=== PATIENT | female | born 2000 | race Caucasian/White ===

== ENCOUNTER 2022-06-24 19:09 | Emergency (ER) | payer MEDICAID, SELFPAY ==
[2022-06-24 19:23] VITALS: BP 123/86; PULSE 96; RESP 16; TEMP 37.1; O2SAT 97
[2022-06-24 20:48] LABS: Basophils # 0.1 10^3/uL (0.0-0.1); Basophils % 0.9 %; Eosinophils # 0.8 10^3/uL (0.0-0.8); Eosinophils % 7.5 %; Hematocrit 48.1 % (37.0-47.0); Hemoglobin 15.4 g/dL (11.5-15.3); Lymphocytes # 2.1 10^3/uL (0.8-4.8); Lymphocytes % 20.1 %; Mean Corpuscular Hemoglobin 28.2 pg (28.0-34.0); Mean Corpuscular Volume 88.1 fl (81-99); Mean Platelet Volume 9.3 fL (7.4-10.4); Monocytes # 0.6 10^3/uL (0.2-0.9); Neutrophils # 6.95 10^3/uL (1.8-7.7); Neutrophils % 65.2 %; Nucleated Red Blood Cells % 0 %; Platelet Count 231 10^3/cmm (130-400); Red Blood Count 5.46 10^6/uL (4.1-5.3); Red Cell Distribution Width 12.9 % (12.1-15.1); White Blood Count 10.7 10^3/uL (4.0-10.0)
[2022-06-24 21:12] LABS: HCG, Serum Qual Negative (Negative)
[2022-06-24 21:16] LABS: Alanine Aminotransferase 28 U/L (0-33); Albumin Level 4.1 g/dL (3.5-5.2); Alkaline Phosphatase 63 U/L (35-105); Anion Gap 12.1 (5-19); Aspartate Amino Transferase 19 U/L (0-32); Blood Urea Nitrogen 15 mg/dL (6-20); Calcium 8.5 mg/dL (8.5-10.5); Carbon Dioxide 27 mmol/L (22-29); Chloride 106 mmol/L (98-107); Globulin 3.1 g/dL (1.3-4.6); Glomerular Filtration Rate 78.3 mL/min (90-130); Glucose 103 mg/dL (65-115); Lipase 21 U/L (13-60); Osmolality Calculated 293 mOsm/kg (285-295); Potassium 4.1 mmol/L (3.5-5.1); Sodium 141 mmol/L (136-145); Total Bilirubin 0.2 mg/dL (0.15-1.2); Total Protein 7.2 g/dL (6.6-8.7)
--- NOTE | 2022-06-24 21:49 | W.ED.ABDPA2 ---
HPI - Abdominal Pain General: Chief Complaint: Abdominal Pain Stated Complaint: right abdomen pain Time Seen by Provider: 06/24/22 21:31 Source: patient Mode of arrival: ambulatory Limitations: no limitations History of Present Illness: See nursing assessment. Patient with complaints of bilateral lower abdominal pain for the past 4 days. Patient states she had dysuria about 1 to 2 weeks ago but did not treated. She states she has no dysuria now. She denies any fever. She denies any lymphadenopathy. She states the pain is mostly in her groins bilaterally. She states she has occasional lower abdominal cramping. States her last menstrual period is about 4 to 6 weeks ago. She denies any previous abdominal surgeries. She is allergic to anything. Past medical history includes hypoglycemia, gallstones by ultrasound. She denies any menses now. Associated Symptoms: Reports GI cramping; Denies chills, fever(s), nausea and vomiting Related Data: Date of Last Menstrual Period: 05/10/22 Review of Systems Const: Denies: fever(s) or chills Eyes: Denies: change in vision ENMT: Denies: throat pain Card: Denies: chest pain or palpitations Resp: Denies: dyspnea or wheezing GI: Reports: abdominal pain and GI cramping; Denies: nausea or vomiting : Denies: flank pain Musc: Denies: neck pain or back pain Skin/Breast: Denies: rash or pruritus Neuro: Denies: headache(s) or numbness in extremities Psych: Denies: anxiety Igor/Lymph: Denies: enlarged lymph nodes [facility] ED Female Reproductive History: Date of last menstrual period: 05/10/22 Supplemental [facility] Information: Hypoglycemia, cholelithiasis, morbid obesity Physical Exam Const: COMMON NORMALS: no acute distress, patient oriented x3, no limitations and well nourished GENERAL APPEARANCE: cooperative HENMT: COMMON NORMALS: normocephalic and atraumatic HEAD & SCALP: normocephalic and atraumatic FACE & SINUS: normal facial exam Eye: COMMON NORMALS: EOMs intact bilaterally Neck/C-Spine: COMMON NORMALS: full ROM, no lymphadenopathy, supple and no meningeal signs GENERAL: Yes normal visual inspection Lymph: LYMPHATIC: no lymphadenopathy noted Chest: COMMONS NORMALS: normal inspection of the chest and normal palpation of entire chest wall CHEST: No Ecchymosis present and No rash Resp: COMMON NORMALS: normal respiratory effort, No retractions and clear to auscultation bilaterally EFFORT & INSPECTION: No respiratory distress AUSCULTATION: clear to auscultation bilaterally Cardio: COMMON NORMALS: regular rate, regular rhythm and Peripheral pulses 2+ throughout JUGULAR VENOUS DISTENTION: no JVD RATE: regular rate RHYTHM: regular rhythm PERIPHERAL PULSES: Peripheral pulses 2+ throughout GI: COMMON NORMALS: Normal to inspection, nondistended, normoactive bowel sounds present and non-tender OTHER: Morbid obesity. Abdomen is actually nontender. No masses palpated. : COMMON NORMALS: Yes no CVA tenderness BLADDER/KIDNEY EXAM: Yes no CVA tenderness OTHER: Patient states she has minimal pain in the groins bilaterally. No lymphadenopathy. No hernias palpated. Back/Pelvis: COMMON NORMALS: no CVA tenderness Extremity: COMMON NORMALS: normal to inspection, full ROM and capillary refill normal Neuro: COMMON NORMALS: patient oriented x3, CN's II-XII intact bilaterally, no focal motor deficits and no sensory deficits noted MENINGEAL SIGNS: Yes no meningeal signs Psych: COMMON NORMALS: mental status grossly normal and Normal thought process present THOUGHT PROCESS: Normal thought process present Skin: COMMON NORMALS: no rashes or lesions noted and no wounds GENERAL SKIN EXAM: no rashes or lesions noted Course Vital Signs: Vital signs: Vital Signs Temperature 98.8 F 06/24/22 19:23 Pulse Rate 80 06/24/22 22:09 Respiratory Rate 16 06/24/22 22:09 Blood Pressure 134/75 06/24/22 22:09 Pulse Oximetry 98 06/24/22 22:09 Oxygen Delivery Me thod 06/24/22 22:09 MDM - Abdominal Pain Medical Decision Making Abdominal pain versus groin pain. Patient in no distress. No palpable lower abdominal pain now. I do not believe patient requires emergent CT scan or pelvic ultrasound this time. I encouraged patient to follow-up with primary care doctor if symptoms persist for outpatient pelvic ultrasound. She does have a family history of polycystic ovarian syndrome. Lab Data Lab tests are essentially normal. 06/24/22 20:39 06/24/22 20:39 Labs/Radiology: Laboratory Results WBC 10.7 10^3/uL (4.0-10.0) H 06/24/22 20:39 RBC 5.46 10^6/uL (4.1-5.3) H 06/24/22 20:39 Hgb 15.4 g/dL (11.5-15.3) H 06/24/22 20:39 Hct 48.1 % (37.0-47.0) H 06/24/22 20:39 MCV 88.1 fl (81-99) 06/24/22 20:39 MCH 28.2 pg (28.0-34.0) 06/24/22 20:39 MCHC 32.0 g/dL (30.0-36.0) 06/24/22 20:39 RDW 12.9 % (12.1-15.1) 06/24/22 20:39 Plt Count 231 10^3/cmm (130-400) 06/24/22 20:39 MPV 9.3 fL (7.4-10.4) 06/24/22 20:39 Neut % (Auto) 65.2 % 06/24/22 20: Lymph % (Auto) 20.1 % 06/24/22 20:39 [place] % (Auto) 6.0 % 06/24/22 20:39 Eos % (Auto) 7.5 % 06/24/22 20:39 Baso % (Auto) 0.9 % 06/24/22 20:39 Neut # (Auto) 6.95 10^3/uL (1.8-7.7) 06/24/22 20:39 Lymph # (Auto) 2.1 10^3/uL (0.8-4.8) 06/24/22 20:39 [place] # (Auto) 0.6 10^3/uL (0.2-0.9) 06/24/22 20:39 Eos # (Auto) 0.8 10^3/uL (0.0-0.8) 06/24/22 20:39 Baso # (Auto) 0.1 10^3/uL (0.0-0.1) 06/24/22 20:39 Nucleated RBC % (auto) 0 % 06/24/22 20: Nucleated RBCs # 0.0 /100WBC 06/24/22 20:39 Sodium 141 mmol/L (136-145) 06/24/22 20:39 Potassium 4.1 mmol/L (3.5-5.1) 06/24/22 20:39 Chloride 106 mmol/L (98-107) 06/24/22 20:39 Carbon Dioxide 27 mmol/L (22-29) 06/24/22 20:39 Anion Gap 12.1 (5-19) 06/24/22 20:39 BUN 15 mg/dL (6-20) 06/24/22 20:39 Creatinine 0.9 mg/dL (0.5-0.9) 06/24/22 20:39 GFR Calculation 78.3 mL/min (90-130) L 06/24/22 20:39 Glucose 103 mg/dL (65-115) 06/24/22 20:39 Calculated Osmolality 293 mOsm/kg (285-295) 06/24/22 20:39 Calcium 8.5 mg/dL (8.5-10.5) 06/24/22 20:39 Total Bilirubin 0.2 mg/dL (0.15-1.2) 06/24/22 20:39 AST 19 U/L (0-32) 06/24/22 20:39 ALT 28 U/L (0-33) 06/24/22 20:39 Alkaline Phosphatase 63 U/L (35-105) 06/24/22 20:39 Total Protein 7.2 g/dL (6.6-8.7) 06/24/22 20:39 Albumin 4.1 g/dL (3.5-5.2) 06/24/22 20:39 Globulin 3.1 g/dL (1.3-4.6) 06/24/22 20:39 Lipase 21 U/L (13-60) 06/24/22 20:39 HCG, Qual Negative (Negative) 06/24/22 20:39 Urine Color Yellow (Yellow) 06/24/22 21:30 Urine Appearance Clear (CLEAR) 06/24/22 21:30 Urine pH 5 (5-7) 06/24/22 21:30 Ur Specific [place] 1.020 (1.005-1.030) 06/24/22 21:30 Urine Protein Neg (Negative) 06/24/22 21:30 Urine Glucose (UA) Norm (Normal) 06/24/22 21:30 Urine Ketones Negative (Negative) 06/24/22 21:30 Urine Blood Neg (Negative) 12/16/22 21:30 Urine Nitrate Negative (Negative) 06/24/22 21:30 Urine Bilirubin 1+ (Negative) H 06/24/22 21:30 Urine Urobilinogen Neg mg/dL (Negative) 06/24/22 21:30 Ur Leukocyte Esterase Negative (Negative) 06/24/22 21:30 Discharge Plan Discharge Patient Disposition: Home Clinical Impression: Abdominal pain Qualifiers: Abdominal location: lower abdomen, unspecified Qualified Code(s): R10.30 - Lower abdominal pain, unspecified Condition: Stable Prescriptions: New naproxen [Naprosyn] 500 mg tablet 500 mg PO BID PRN (Reason: pain) Qty: 10 2RF Rx Instructions: prn pain Discharge Orders: Discharge ED (Routine); Ordered 06/24/22 Ordered By: Ricco Carson Discharge Activity: Increase activity as tolerated Patient Instructions: Abdominal Pain (ED) Activity Restrictions/Additional Instructions: Follow-up with primary care doctor next week if symptoms persist. You may require ultrasound of your pelvis if pain persists. Coding Level of Care Code ED Customer Service Engineer for Jose Marting Fwd History Comprehensive Exam Comprehensive Medical Decision Making Moderate Complexity
[2022-06-24 21:51] LABS: Add Urine Microscopic? NO; Charge for UA Resulting for Rev
[2022-06-24 22:09] VITALS: BP 134/75; PULSE 80; RESP 16; O2SAT 98
[2022-06-24 22:11] LABS: Bilirubin Urine 1+ (Negative); Blood Urine Neg (Negative); Glucose Urine UA Norm (Normal); Ketones Urine Negative (Negative); Leukocyte Esterase Urine Negative (Negative); Nitrate Urine Negative (Negative); Protein Urine Neg (Negative); Urine Appearance Clear (CLEAR); Urine Color Yellow (Yellow); Urobilinogen Urine Neg (Negative); pH Urine 5 (5-7)
[2022-06-24 23:35] VITALS: BP 137/68; PULSE 79; RESP 16; O2SAT 98
== END 2022-06-24 23:33 | disposition home or self-care (01) ==
PROVIDERS: Emergency Medicine; Emergency Provider Family Medicine
DX: R10.30 Lower abdominal pain, unspecified (principal)
CPT/HCPCS: 36415; 80053; 81003; 83690; 84703; 85025; 99283

== ENCOUNTER 2022-08-12 01:13 | Emergency (ER) | payer MEDICAID, SELFPAY ==
[2022-08-12 01:18] VITALS: BP 141/91; PULSE 92; RESP 18; TEMP 36.6; O2SAT 97; BMI 53.2
--- NOTE | 2022-08-12 01:27 | USR_ITS ---
PROCEDURE INFORMATION: Exam: US Abdomen, Limited; Right Upper Quadrant Exam date and time: 08/12/2022 1:51 AM Age: 21 years old Clinical indication: Abdominal pain; Other: Ruq pain today 02/16; Patient HX: Patient was diagnosed with cholelithiasis in [place] 1-2 years ago, but she has been delaying surgery because she is unable to afford it. Ruq pain is intermittently quite intense, now 02/16. ; Additional info: Abd pain TECHNIQUE: Imaging protocol: Real time ultrasound of the abdomen with image documentation. Limited exam focused on the right upper quadrant. COMPARISON: No relevant prior studies available. FINDINGS: Liver: Normal. No masses. Gallbladder: There is a prominent hyperechoic focus seen intraluminally within the gallbladder exhibiting acoustic shadowing measuring 1.7 cm compatible with a prominent gallstone. There is mild gallbladder wall thickening measuring 3.4 mm. There is a positive sonographic Reynoso sign elicited. Biliary ducts: Normal. No stones. No dilation. Pancreas: Visualized pancreas is unremarkable. Right kidney: Normal. No mass. No hydronephrosis. US/US gall bladder [id number] IMPRESSION: Prominent gallstone with asymmetric gallbladder wall thickening measuring up to 3.4 mm and positive sonographic Reynoso sign, findings compatible with gallstone cholecystitis.
--- NOTE | 2022-08-12 01:31 | ED_ITS ---
HPI - Abdominal Pain General: Chief Complaint: Abdominal Pain Stated Complaint: ABD Pain Possible Gall Stones Time Seen by Provider: 08/12/22 01:16 Source: patient Mode of arrival: ambulatory Limitations: no limitations History of Present Illness: 21-year-old female states she had a history of gallstones in the past states she been having pain over the last month and has been worsening. States it is worse with eating states tonight pain was severe in nature rates an 8 out of 10 she had some nausea denies fever denies vomiting pain is in the right upper quadrant states it seemed to radiate to her right upper back as well. Associated Symptoms: Denies chills, dysuria and fever(s) Related Data: Date of Last Menstrual Period: 05/10/22 Review of Systems Const: Denies: fever(s), chills, body aches or change in appetite Eyes: Denies: blurry vision or eye discomfort ENMT: Denies: throat pain or dental pain Card: Denies: chest pain Resp: Denies: dyspnea GI: Reports: abdominal pain : Denies: dysuria Musc: Denies: neck pain or back pain Skin/Breast: Denies: rash Neuro: Denies: headache(s) Psych: Denies: depression Igor/Lymph: Denies: easy bruising All/Imm: Denies: urticaria PFSH ED PFSH: Medical History Gallstone Social History (Updated 08/12/22 @ 01:32 by Thu Mora MD) Substance/Drug Use: never Female Reproductive History: Date of last menstrual period: 05/10/22 Physical Exam Const: COMMON NORMALS: no acute distress, patient oriented x3 and healthy appearing HENMT: COMMON NORMALS: normocephalic and atraumatic HEAD & SCALP: normocephalic and atraumatic Eye: COMMON NORMALS: Equal, round and reactive pupils present and EOMs intact bilaterally PUPIL: Yes Equal, round and reactive pupils present Neck/C-Spine: COMMON NORMALS: full ROM and supple Chest: COMMONS NORMALS: normal inspection of the chest and normal palpation of entire chest wall Resp: COMMON NORMALS: normal respiratory effort, No retractions, No use of accessory muscles and clear to auscultation bilaterally AUSCULTATION: clear to auscultation bilaterally Cardio: COMMON NORMALS: regular rate, regular rhythm and No murmurs present (Cardio) RATE: regular rate RHYTHM: regular rhythm GI: COMMON NORMALS: Normal to inspection, nondistended, normoactive bowel sounds present, Soft to palpation and no masses PALPATION: Yes Soft to palpation and Yes Tenderness to palpation present (GI) Details: RUQ Extremity: COMMON NORMALS: normal to inspection and full ROM Neuro: COMMON NORMALS: patient oriented x3, moves all extremities and no focal motor deficits Psych: COMMON NORMALS: mental status grossly normal, Normal thought process present and cooperative THOUGHT PROCESS: Normal thought process present Skin: COMMON NORMALS: no rashes or lesions noted and no wounds GENERAL SKIN EXAM: no rashes or lesions noted Course Vital Signs: Vital signs: Vital Signs Temperature 97.9 F 08/12/22 01:18 Pulse Rate 92 08/12/22 01:18 Respiratory Rate 16 08/12/22 01:38 Blood Pressure 141/91 08/12/22 01:18 Pulse Oximetry 97 08/12/22 01:18 MDM - Abdominal Pain Medical Decision Making Patient presents here with abdominal pain she does have elevated white count right upper quadrant tenderness and ultrasound shows cholecystitis with gallstones I did speak to surgeon here Dr. Cummings who felt patient would be better served at a larger facility as he did not feel comfortable with surgery here due to her size I did speak to Dr. Mcpherson at [facility] will transfer there for higher level care for bariatric capabilities Lab Data 08/12/22 01:38 08/12/22 01:38 Labs/Radiology: Radiology Impressions Gallbladder Ultrasound 08/12/22 01:27 IMPRESSION: Prominent gallstone with asymmetric gallbladder wall thickening measuring up to 3.4 mm and positive sonographic Reynoso sign, findings compatible with gallstone cholecystitis. Laboratory Results WBC 16.3 10^3/uL (4.0-10.0) H 08/12/22 01:38 RBC 5.90 10^6/uL (4.1-5.3) H 08/12/22 01:38 Hgb 16.6 g/dL (11.5-15.3) H 08/12/22 01:38 Hct 50.7 % (37.0-47.0) H 08/12/22 01:38 MCV 85.9 fl (81-99) 08/12/22 01:38 MCH 28.1 pg (28.0-34.0) 08/12/22 01:38 MCHC 32.7 g/dL (30.0-36.0) 08/12/22 01:38 RDW 13.3 % (12.1-15.1) 08/12/22 01:38 Plt Count 231 10^3/cmm (130-400) 08/12/22 01:38 MPV 9.4 fL (7.4-10.4) 08/12/22 01:38 Neut % (Auto) 48.2 % 08/12/22 01:38 Lymph % (Auto) 23.0 % 08/12/22 01:38 [place] % (Auto) 5.4 % 08/12/22 01:38 Eos % (Auto) 22.1 % 08/12/22 01:38 Baso % (Auto) 0.8 % 08/12/22 01:38 Neut # (Auto) 7.86 10^3/uL (1.8-7.7) H 08/12/22 01:38 Lymph # (Auto) 3.8 10^3/uL (0.8-4.8) 08/12/22 01:38 [place] # (Auto) 0.9 10^3/uL (0.2-0.9) 08/12/22 01:38 Eos # (Auto) 3.6 10^3/uL (0.0-0.8) H 08/12/22 01:38 Baso # (Auto) 0.1 10^3/uL (0.0-0.1) 08/12/22 01:38 Nucleated RBC % (auto) 0 % 08/12/22 01:38 Nucleated RBCs # 0.0 /100WBC 08/12/22 01:38 Sodium 140 mmol/L (136-145) 08/12/22 01:38 Potassium 4.3 mmol/L (3.5-5.1) 08/12/22 01:38 Chloride 105 mmol/L (98-107) 08/12/22 01:38 Carbon Dioxide 25 mmol/L (22-29) 08/12/22 01:38 Anion Gap 14.3 (5-19) 08/12/22 01:38 BUN 13 mg/dL (6-20) 08/12/22 01:38 Creatinine 0.8 mg/dL (0.5-0.9) 08/12/22 01:38 GFR Calculation 89.7 mL/min (90-130) L 08/12/22 01:38 Glucose 97 mg/dL (65-115) 08/12/22 01:38 Calculated Osmolality 290 mOsm/kg (285-295) 08/12/22 01:38 Calcium 9.1 mg/dL (8.5-10.5) 08/12/22 01:38 Total Bilirubin 0.3 mg/dL (0.15-1.2) 08/12/22 01:38 AST 17 U/L (0-32) 08/12/22 01:38 ALT 23 U/L (0-33) 08/12/22 01:38 Alkaline Phosphatase 76 U/L (35-105) 08/12/22 01:38 Total Protein 7.2 g/dL (6.6-8.7) 08/12/22 01:38 Albumin 4.3 g/dL (3.5-5.2) 08/12/22 01:38 Globulin 2.9 g/dL (1.3-4.6) 08/12/22 01:38 Lipase 49 U/L (13-60) 08/12/22 01:38 HCG, Qual Negative (Negative) 08/12/22 01:38 Urine Color Yellow (Yellow) 08/12/22 01:42 Urine Appearance Sl hazy (CLEAR) A 08/12/22 01:42 Urine pH 6 (5-7) 08/12/22 01:42 Ur Specific [place] 1.020 (1.005-1.030) 08/12/22 01:42 Urine Protein Neg (Negative) 08/12/22 01:42 Urine Glucose (UA) Norm (Normal) 08/12/22 01:42 Urine Ketones Negative (Negative) 08/12/22 01:42 Urine Blood Neg (Negative) 08/12/22 01:42 Urine Nitrate Negative (Negative) 08/12/22 01:42 Urine Bilirubin Neg (Negative) 08/12/22 01:42 Urine Urobilinogen 1 mg/dL (Negative) H 08/12/22 01:42 Ur Leukocyte Esterase 2+ (Negative) H 08/12/22 01:42 Urine RBC 0-4 /hpf (0-2) H 08/12/22 01:42 Urine WBC 10-15 /hpf (0-5) H 08/12/22 01:42 Ur Squamous Epith Cells 15-25 /hpf (0-5) H 08/12/22 01:42 Amorphous Sediment Not Reportable 08/12/22 01:42 Urine Bacteria 2+ /hpf (NONE) H 08/12/22 01:42 Discharge Plan Discharge Patient Disposition: Xfer Short-Term Hosp Clinical Impression: Cholecystitis Coding Level of Care Code ED Clinical Asst for Nolan Fwd Exam Comprehensive
[2022-08-12 01:38] VITALS: RESP 16
[2022-08-12] MEDS: ondansetron 2 mg/ML SDV 2 mL 4 MG IVP (01:38)
[2022-08-12] MEDS: morphine 4 mg/mL SDV 1 mL IVP (01:38)
[2022-08-12] MEDS: sodium chloride 0.9% 1,000 ML 999 ML IV (01:39)
[2022-08-12 01:43] LABS: Basophils # 0.1 10^3/uL (0.0-0.1); Basophils % 0.8 %; Eosinophils # 3.6 10^3/uL (0.0-0.8); Eosinophils % 22.1 %; Hematocrit 50.7 % (37.0-47.0); Hemoglobin 16.6 g/dL (11.5-15.3); Lymphocytes # 3.8 10^3/uL (0.8-4.8); Mean Corpuscular HGB Conc 32.7 g/dL (30.0-36.0); Mean Corpuscular Hemoglobin 28.1 pg (28.0-34.0); Mean Corpuscular Volume 85.9 fl (81-99); Mean Platelet Volume 9.4 fL (7.4-10.4); Monocytes # 0.9 10^3/uL (0.2-0.9); Monocytes % 5.4 %; Neutrophils # 7.86 10^3/uL (1.8-7.7); Neutrophils % 48.2 %; Nucleated Red Blood Cells % 0 %; Platelet Count 231 10^3/cmm (130-400); Red Cell Distribution Width 13.3 % (12.1-15.1); White Blood Count 16.3 10^3/uL (4.0-10.0)
[2022-08-12 02:00] VITALS: BP 128/77; PULSE 79; RESP 18; O2SAT 97
[2022-08-12 02:05] LABS: Alanine Aminotransferase 23 U/L (0-33); Albumin Level 4.3 g/dL (3.5-5.2); Alkaline Phosphatase 76 U/L (35-105); Aspartate Amino Transferase 17 U/L (0-32); Blood Urea Nitrogen 13 mg/dL (6-20); Calcium 9.1 mg/dL (8.5-10.5); Carbon Dioxide 25 mmol/L (22-29); Chloride 105 mmol/L (98-107); Globulin 2.9 g/dL (1.3-4.6); Glomerular Filtration Rate 89.7 mL/min (90-130); Glucose 97 mg/dL (65-115); Lipase 49 U/L (13-60); Osmolality Calculated 290 mOsm/kg (285-295); Sodium 140 mmol/L (136-145); Total Bilirubin 0.3 mg/dL (0.15-1.2); Total Protein 7.2 g/dL (6.6-8.7)
[2022-08-12 02:19] LABS: Anion Gap 14.3 (5-19); Potassium 4.3 mmol/L (3.5-5.1)
[2022-08-12 02:20] LABS: HCG, Serum Qual Negative (Negative)
[2022-08-12 02:23] LABS: Urine Appearance SL Hazy (CLEAR); Urine Color Yellow (Yellow)
[2022-08-12 02:24] LABS: Add Urine Microscopic? YES; Bacteria Urine 2+ /hpf; Bilirubin Urine Neg (Negative); Blood Urine Neg (Negative); Glucose Urine UA Norm (Normal); Ketones Urine Negative (Negative); Leukocyte Esterase Urine 2+ (Negative); Nitrate Urine Negative (Negative); Protein Urine Neg (Negative); RBC Urine 0-4 /hpf (0-2); Squamous Epithelial Cell Urine 15-25 /hpf (0-5); Urobilinogen Urine 1 mg/dL (Negative); pH Urine 6 (5-7)
[2022-08-12 02:26] LABS: Add Urine Culture? No
[2022-08-12 03:00] VITALS: BP 118/75; BP 124/66; PULSE 73; PULSE 75; RESP 18; O2SAT 99
[2022-08-12] MEDS: piperacillin-tazobactam 3.375 GM in sodium chloride 0.9% (plus) 50 ML IV (03:23)
[2022-08-12 04:00] VITALS: BP 131/64; PULSE 88; RESP 18; O2SAT 97
[2022-08-12 05:00] VITALS: BP 106/66; RESP 18; O2SAT 100
--- NOTE | 2022-08-12 05:15 | PC.NURSE ---
Report called to KIM Orellana
[2022-08-12] MEDS: HYDROmorphone 1 mg/mL INJ 1 mL IVP (05:33)
== END 2022-08-12 09:09 | disposition short-term general hospital (02) ==
PROVIDERS: Emergency Provider Emergency Medicine
DX: K81.9 Cholecystitis, unspecified (principal)
CPT/HCPCS: 76705; 80053; 81001; 83690; 84703; 85025; 96365; 96375; 99285; J1170; J2270; J2405; J2543; J7030

== ENCOUNTER 2023-04-25 18:13 | Emergency (ER) | payer MEDICAID, SELFPAY ==
[2023-04-25 18:17] VITALS: BP 167/80; PULSE 86; RESP 17; TEMP 36.6; O2SAT 97; BMI 51.3
[2023-04-25 19:32] LABS: Basophils # 0.1 10^3/uL (0.0-0.1); Basophils % 0.8 %; Eosinophils # 0.5 10^3/uL (0.0-0.8); Eosinophils % 6.3 %; Hematocrit 48.6 % (36-47); Lymphocytes # 2.5 10^3/uL (0.8-4.8); Lymphocytes % 28.9 %; Mean Corpuscular HGB Conc 32.5 g/dL (30-55); Mean Corpuscular Volume 89.3 fl (85-98); Mean Platelet Volume 9.4 fL (7.4-10.4); Monocytes # 0.5 10^3/uL (0.2-0.9); Monocytes % 5.7 %; Neutrophils % 58.1 %; Nucleated Red Blood Cells % 0 %; Platelet Count 239 10^3/cmm (157-399); Red Blood Count 5.44 10^6/uL (3.85-5.65); Red Cell Distribution Width 12.9 % (12.1-15.1); White Blood Count 8.61 10^3/uL (3.29-11.43)
--- NOTE | 2023-04-25 19:40 | ED_ITS ---
HPI - Abdominal Pain General: Chief Complaint: Abdominal Pain Stated Complaint: abdomin pain Time Seen by Provider: 04/25/23 19:39 History of Present Illness: 22-year-old female comes in today for complaints of right upper quadrant abdominal pain. Patient has a history of gallbladder removal about 2 years ago. Patient at that time did have a partial bowel resection due to concerns of infection in the bowel secondary to have her gallbladder. Patient reports no chronic problems and pain just started today. Patient did have some nausea without any vomiting. Patient reports nothing improves or worsens the pain. Patient appears nontoxic. Patient appears in mild pain at rest. Patient denies any other chronic medical problems, or routine medicines. Associated Symptoms: Reports nausea; Denies chills, constipation, diarrhea, fever(s) and vomiting Review of Systems General: Reports: 10 or more systems reviewed and unremarkable except in HPI and below Const: Denies: fever(s) or chills ENMT: Denies: throat pain Card: Denies: chest pain Resp: Denies: dyspnea GI: Reports: abdominal pain and nausea; Denies: vomiting, diarrhea or constipation : Denies: flank pain or difficulty voiding Musc: Denies: neck pain or back pain Skin/Breast: Denies: rash PFSH ED PFSH: Medical History [place] Social History (Updated 08/12/22 @ 01:32 by Thu Mora MD) Substance/Drug Use: never Physical Exam Const: COMMON NORMALS: alert HENMT: COMMON NORMALS: normocephalic HEAD & SCALP: normocephalic Neck/C-Spine: COMMON NORMALS: full ROM Resp: COMMON NORMALS: normal respiratory effort and clear to auscultation bilaterally AUSCULTATION: clear to auscultation bilaterally Cardio: COMMON NORMALS: regular rate and regular rhythm RATE: regular rate RHYTHM: regular rhythm GI: COMMON NORMALS: Soft to palpation AUSCULTATION: Yes normoactive bowel sounds PALPATION: Yes Soft to palpation and Yes Tenderness to palpation present (GI) Details: RUQ : COMMON NORMALS: Yes no CVA tenderness BLADDER/KIDNEY EXAM: Yes no CVA tenderness Back/Pelvis: COMMON NORMALS: no CVA tenderness and thoracic and lumbar spine normal to inspection Extremity: COMMON NORMALS: normal to inspection Neuro: SENSORIUM/ORIENTATION: Yes alert Skin: COMMON NORMALS: turgor normal GENERAL SKIN EXAM: turgor normal Course Vital Signs: Vital signs: Vital Signs Temperature 97.8 F 04/25/23 18:17 Pulse Rate 82 04/25/23 19:53 Respiratory Rate 16 04/25/23 19:53 Blood Pressure 126/74 04/25/23 19:53 Pulse Oximetry 94 04/25/23 19:53 Oxygen Delivery Mo thod Room Air 04/25/23 18:17 MDM - Abdominal Pain Medical Decision Making 22-year-old female comes in today for complaints of right upper quadrant abdominal pain. Patient does have a history of gallbladder removal. Patient appears nontoxic. Abdomen is tender in the right upper quadrant on palpation. Vital signs are normal except for some elevated blood pressure. Differential diagnosis includes not limited to bowel obstruction, surgical adhesions, panc reatitis, abscess, bile duct occlusion. CBC, CMP, and urinalysis were all normal. KUB x-ray showed a large amount of stool in the ascending colon without signs or pattern of bowel obstruction. I had Dr. Mora who reviewed the x-ray with me and he agreed with initial interpretation. Radiology will review. Patient was recommended to use lactulose for constipation drink plenty of fluids and follow-up with primary care for further instructions. Recommend return to the ER for worsening symptoms such as high fever, blood in vomit or stool. Patient reported understanding. Lab Data 04/25/23 19:18 04/25/23 19:18 Labs/Radiology: Laboratory Results WBC 8.61 10^3/uL (3.29-11.43) 04/25/23 19:18 RBC 5.44 10^6/uL (3.85-5.65) 04/25/23 19:18 Hgb 15.80 g/dL (11.27-16.99) 04/25/23 19:18 Hct 48.6 % (36-47) H 04/25/23 19:18 MCV 89.3 fl (85-98) 04/25/23 19:18 MCH 29.0 pg (27-33) 04/25/23 19:18 MCHC 32.5 g/dL (30-55) 04/25/23 19:18 RDW 12.9 % (12.1-15.1) 04/25/23 19:18 Plt Count 239 10^3/cmm (157-399) 04/25/23 19:18 MPV 9.4 fL (7.4-10.4) 04/25/23 19:18 Neut % (Auto) 58.1 % 04/25/23 19:18 Lymph % (Auto) 28.9 % 04/25/23 19:18 [place] % (Auto) 5.7 % 04/25/23 19:18 Eos % (Auto) 6.3 % 04/25/23 19:18 Baso % (Auto) 0.8 % 04/25/23 19:18 Neut # (Auto) 5.00 10^3/uL (1.8-7.7) 04/25/23 19:18 Lymph # (Auto) 2.5 10^3/uL (0.8-4.8) 04/25/23 19:18 [place] # (Auto) 0.5 10^3/uL (0.2-0.9) 04/25/23 19:18 Eos # (Auto) 0.5 10^3/uL (0.0-0.8) 04/25/23 19:18 Baso # (Auto) 0.1 10^3/uL (0.0-0.1) 04/25/23 19:18 Nucleated RBC % (auto) 0 % 04/25/23 19:18 Nucleated RBCs # 0.0 /100WBC 04/25/23 19:18 Sodium 143 mmol/L (136-145) 04/25/23 19:18 Potassium 3.7 mmol/L (3.5-5.1) 04/25/23 19:18 Chloride 106 mmol/L (98-107) 04/25/23 19:18 Carbon Dioxide 28 mmol/L (22-29) 04/25/23 19:18 Anion Gap 12.7 (5-19) 04/25/23 19:18 BUN 9 mg/dL (6-20) 04/25/23 19:18 Creatinine 0.8 mg/dL (0.5-0.9) 04/25/23 19:18 GFR Calculation 88.9 mL/min (90-130) L 04/25/23 19:18 Glucose 94 mg/dL (65-115) 04/25/23 19:18 Calculated Osmolality 294 mOsm/kg (285-295) 04/25/23 19:18 Calcium 9.1 mg/dL (8.5-10.5) 04/25/23 19:18 Total Bilirubin 0.4 mg/dL (0.15-1.2) 04/25/23 19:18 AST 21 U/L (0-32) 04/25/23 19:18 ALT 42 U/L (0-33) H 04/25/23 19:18 Alkaline Phosphatase 63 U/L (35-105) 04/25/23 19:18 Total Protein 7.0 g/dL (6.6-8.7) 04/25/23 19:18 Albumin 4.2 g/dL (3.5-5.2) 04/25/23 19:18 Globulin 2.8 g/dL (1.3-4.6) 04/25/23 19:18 Lipase 24 U/L (13-60) 04/25/23 19:18 HCG, Qual Negative (Negative) 04/25/23 19:18 Urine Color Yellow (Yellow) 04/25/23 19:37 Urine Appearance Sl hazy (CLEAR) A 04/25/23 19:37 Urine pH 6 (5-7) 04/25/23 19:37 Ur Specific [place] 1.020 (1.005-1.030) 04/25/23 19:37 Urine Protein Neg (Negative) 04/25/23 19:37 Urine Glucose (UA) Norm (Normal) 04/25/23 19:37 Urine Ketones Negative (Negative) 04/25/23 19:37 Urine Blood Neg (Negative) 04/25/23 19:37 Urine Nitrate Negative (Negative) 04/25/23 19:37 Urine Bilirubin Neg (Negative) 04/25/23 19:37 Urine Urobilinogen 1 mg/dL (Negative) H 04/25/23 19:37 Ur Leukocyte Esterase Trace (Negative) H 04/25/23 19:37 Urine RBC 0-4 /hpf (0-2) H 04/25/23 19:37 Urine WBC 0-4 /hpf (0-5) H 04/25/23 19:37 Ur Squamous Epith Cells 5-10 /hpf (0-5) H 04/25/23 19:37 Amorphous Sediment Not Reportable 04/25/23 19:37 Urine Bacteria Trace /hpf (NONE) 04/25/23 19:37 Urine Mucus 1+ /hpf 04/25/23 19:37 All radiology interpretation(s) finalized by discharge Discharge Plan Discharge Patient Disposition: Home Clinical Impression: Constipation Condition: Stable Prescriptions: New lactulose 10 gram/15 mL solution 20 g PO BID PRN (Reason: constipation) Qty: 237 0RF No Action naproxen [Naprosyn] 500 mg tablet 500 mg PO BID PRN (Reason: pain) Qty: 10 2RF Rx Instructions: prn pain Discharge Orders: Discharge ED (Routine); Ordered 04/25/23 Ordered By: Donald Liang Discharge Diet: Usual diet Discharge Activity: Increase activity as tolerated Patient Instructions: Constipation (ED) Activity Restrictions/Additional Instructions: Drink plenty of water and fluids. Take lactulose 30 mL 2 times a day for constipation. Make sure you are drinking plenty of water when using this medication for constipation. Eat a healthy diet with plenty of fresh fruits and vegetables and fibrous foods. Stay well-hydrated. Follow-up with primary care for persistent symptoms. Return to ED for new concerns or worsening symptoms such as persistent vomiting, blood in vomit or stool, fever greater than 100.4, or new concerns. Coding Level of Care Code ED Investigation Division Lieutenant for Nolan Rahman
--- NOTE | 2023-04-25 19:44 | XRR_ITS ---
PROCEDURE INFORMATION: Exam: XR Abdomen Exam date and time: 04/25/2023 8:13 PM Age: 22 years old Clinical indication: Abdominal pain; Additional info: Abd pain, R/O obstruction TECHNIQUE: Imaging protocol: Radiologic exam of the abdomen. Views: Frontal supine view of the abdomen. 1 View. COMPARISON: US gall bladder [id number] 08/12/2022 1:51 AM FINDINGS: Gastrointestinal tract: No air-filled dilated bowel loops or evidence of bowel thickening. Mixed stool and gas visualized throughout the colon to the rectum. Intraperitoneal space: Right upper abdomen surgical clips. No supine evidence of free air. Bones/joints: Unremarkable. XR/XR KUB [id number] IMPRESSION: No acute findings.
[2023-04-25 19:51] LABS: Bilirubin Urine Neg (Negative); Blood Urine Neg (Negative); Glucose Urine UA Norm (Normal); Ketones Urine Negative (Negative); Nitrate Urine Negative (Negative); Protein Urine Neg (Negative); Urine Appearance SL Hazy (CLEAR); Urine Color Yellow (Yellow); pH Urine 6 (5-7)
[2023-04-25 19:51] LABS: HCG, Serum Qual Negative (Negative)
[2023-04-25 19:52] LABS: Add Urine Microscopic? YES; Leukocyte Esterase Urine Trace (Negative); Urobilinogen Urine 1 mg/dL (Negative)
[2023-04-25 19:53] VITALS: BP 126/74; PULSE 82; RESP 16; O2SAT 94
[2023-04-25 19:54] LABS: Alanine Aminotransferase 42 U/L (0-33); Albumin Level 4.2 g/dL (3.5-5.2); Alkaline Phosphatase 63 U/L (35-105); Anion Gap 12.7 (5-19); Aspartate Amino Transferase 21 U/L (0-32); Blood Urea Nitrogen 9 mg/dL (6-20); Calcium 9.1 mg/dL (8.5-10.5); Carbon Dioxide 28 mmol/L (22-29); Chloride 106 mmol/L (98-107); Globulin 2.8 g/dL (1.3-4.6); Glomerular Filtration Rate 88.9 mL/min (90-130); Glucose 94 mg/dL (65-115); Lipase 24 U/L (13-60); Osmolality Calculated 294 mOsm/kg (285-295); Potassium 3.7 mmol/L (3.5-5.1); Sodium 143 mmol/L (136-145); Total Bilirubin 0.4 mg/dL (0.15-1.2)
[2023-04-25 20:04] LABS: Bacteria Urine TRACE /hpf; Mucus Urine 1+ /hpf; RBC Urine 0-4 /hpf (0-2); WBC Urine 0-4 /hpf (0-5)
[2023-04-25 20:05] LABS: Add Urine Culture? No
[2023-04-25] MEDS: lactulose oral liq 20 gm/30 mL UDC PO (20:49)
== END 2023-04-25 20:50 | disposition home or self-care (01) ==
PROVIDERS: Emergency Medicine; Emergency Provider Nurse Practitioner Family
DX: K59.00 Constipation, unspecified (principal)
CPT/HCPCS: 36415; 74018; 80053; 81001; 83690; 84703; 85025; 99284

== ENCOUNTER 2023-08-14 16:53 | Emergency (ER) | payer MEDICAID, SELFPAY ==
[2023-08-14 16:58] VITALS: BP 164/103; PULSE 103; RESP 16; TEMP 37.5; O2SAT 96; BMI 49.4
--- NOTE | 2023-08-14 19:05 | XRR_ITS ---
PROCEDURE INFORMATION: Exam: XR Chest Exam date and time: 08/14/2023 7:11 PM Age: 22 years old Clinical indication: Cough TECHNIQUE: Imaging protocol: Radiologic exam of the chest. Views: 1 view. COMPARISON: CR XR KUB [id number] 25/04/2023 20:13 FINDINGS: Lungs: Unremarkable. No consolidation. Pleural spaces: Unremarkable. No pleural effusion. No pneumothorax. Heart/Mediastinum: Unremarkable. No cardiomegaly. Bones/joints: Unremarkable. XR/XR chest 1V portable [id number] IMPRESSION: No acute findings.
--- NOTE | 2023-08-14 19:08 | W.ED.URI ---
HPI - URI/Sore Throat General: Chief Complaint: Upper Respiratory Infection Stated Complaint: sore throat, cough Time Seen by Provider: 08/14/23 19:03 Source: patient Mode of arrival: ambulatory Limitations: no limitations History of Present Illness: 22-year-old female states over the last 2 days she has had cough congestion sore throat she is also had low-grade fevers and headache. States she had pneumonia in the past concerned she may have a pneumonia pulse ox here is normal she denies any chest pain denies any vomiting or diarrhea. Associated symptoms: Reports chills, fever(s) and headache(s); Deny abdominal pain, chest pain, diarrhea, nausea or vomiting Review of Systems Const: Reports: fever(s), chills and body aches; Denies: change in appetite ENMT: Denies: throat pain or dental pain Card: Denies: chest pain Resp: Reports: non-productive cough; Denies: dyspnea GI: Denies: abdominal pain, nausea, vomiting or diarrhea Musc: Denies: neck pain or back pain Skin/Breast: Denies: rash Neuro: Reports: headache(s) PFSH ED PFSH: Medical History [place] Social History Substance/Drug Use: never Physical Exam Const: COMMON NORMALS: no acute distress, patient oriented x3 and healthy appearing HENMT: COMMON NORMALS: normocephalic and atraumatic HEAD & SCALP: normocephalic and atraumatic THROAT: posterior oropharynx normal Neck/C-Spine: COMMON NORMALS: full ROM and supple Chest: COMMONS NORMALS: normal inspection of the chest and normal palpation of entire chest wall Resp: COMMON NORMALS: normal respiratory effort, No retractions, No use of accessory muscles and clear to auscultation bilaterally AUSCULTATION: clear to auscultation bilaterally Cardio: COMMON NORMALS: regular rate, regular rhythm and No murmurs present (Cardio) RATE: regular rate RHYTHM: regular rhythm Extremity: COMMON NORMALS: normal to inspection and full ROM Neuro: COMMON NORMALS: patient oriented x3, moves all extremities and no focal motor deficits Psych: COMMON NORMALS: mental status grossly normal, Normal thought process present and cooperative THOUGHT PROCESS: Normal thought process present Skin: COMMON NORMALS: no rashes or lesions noted and no wounds GENERAL SKIN EXAM: no rashes or lesions noted Course Vital Signs: Vital signs: Vital Signs Temperature 99.5 F 08/14/23 16:58 Pulse Rate 103 H 08/14/23 16:58 Respiratory Rate 16 08/14/23 16:58 Blood Pressure 164/103 08/14/23 16:58 Pulse Oximetry 96 08/14/23 16:58 Oxygen Delivery Me thod Room Air 08/14/23 16:58 MDM - URI/Sore Throat Medical Decision Making Patient presents here with cough congestion likely an upper respiratory infection x-ray shows no pneumonia is likely viral she is well-appearing here she stable for discharge follow-up with PCP and return if worsening. Medical Records I reviewed the patient's medical records. Lab Data I reviewed the patient's lab results. Radiology Impressions Chest X-Ray 08/14/23 19:05 IMPRESSION: No acute findings. Laboratory Results Influenza Type A Ag negative (Negative) 08/14/23 19:36 Influenza Type B Ag negative (Negative) 08/14/23 19:36 SARS-CoV-2 Ag (Rapid) negative (Negative) 08/14/23 19:36 Group A Strep Rapid Negative (Negative) 08/14/23 19:36 All radiology interpretation(s) finalized by discharge Discharge Plan Discharge Patient Disposition: Home Clinical Impression: Upper respiratory infection Condition: Stable Prescriptions: No Action naproxen [Naprosyn] 500 mg tablet 500 mg PO BID PRN (Reason: pain) Qty: 10 2RF Rx Instructions: prn pain lactulose 10 gram/15 mL solution 20 g PO BID PRN (Reason: constipation) Qty: 237 0RF Discharge Orders: Discharge ED (Routine); Ordered 08/14/23 Ordered By: Thu Mora Discharge Diet: Advance as tolerated Discharge Activity: Resume usual activity Patient Instructions: Upper Respiratory Infection (ED) Stand Alone Forms: Work/School Release Coding Level of Care Code ED Middle Stitcher for Nolan Rahman
[2023-08-14] MEDS: ibuprofen 600 mg Tablet PO (19:33)
[2023-08-14] MEDS: dexamethasone 10 mg/mL INJ IM (19:34)
[2023-08-14 20:19] LABS: Rapid Strep A Test Negative (Negative)
[2023-08-14 20:27] LABS: Influenza A by IFA negative (Negative); Influenza B by IFA negative (Negative); SARS Covid-2 Antigen negative (Negative)
== END 2023-08-14 21:19 | disposition home or self-care (01) ==
PROVIDERS: Emergency Provider Emergency Medicine
DX: J06.9 Acute upper respiratory infection, unspecified (principal); Z11.52 Encounter for screening for COVID-19
CPT/HCPCS: 71045; 87081; 87426; 87804; 87880; 96372; 99284; J1100

== ENCOUNTER 2023-11-26 19:11 | Emergency (ER) | payer MEDICAID, SELFPAY ==
[2023-11-26 19:11] VITALS: BP 116/83; PULSE 66; RESP 16; TEMP 36.6; O2SAT 97; BMI 49.4
--- NOTE | 2023-11-26 19:21 | XRR_ITS ---
PROCEDURE INFORMATION: Exam: XR Chest Exam date and time: 11/26/2023 7:25 PM Age: 23 years old Clinical indication: Angina pectoris; Patient HX: Chest pain TECHNIQUE: Imaging protocol: Radiologic exam of the chest. Views: 1 view. COMPARISON: CR (CHEST, ) 08/14/2023 7:11 PM FINDINGS: Lungs: Unremarkable. No consolidation. Pleural spaces: Unremarkable. No pleural effusion. No pneumothorax. Heart/Mediastinum: Unremarkable. No cardiomegaly. Bones/joints: Unremarkable. XR/XR chest 1V portable [id number] IMPRESSION: No acute findings.
--- NOTE | 2023-11-26 19:22 | ECG_ITS ---
[facility] Test Date: 2023-11-26 Pat Name: Teri Davis Department: Room: Gender: Female Radio Interference Investigator: : 2000 Requested By: Maxi Ware Order Number: [id number] Juan MD: Rishi Koo M.D. Measurements Intervals [place] Rate: 67 P: 29 ME: 141 QRS: 13 QRSD: 98 T: 21 QT: 393 QTc: 418 Interpretive Statements SINUS RHYTHM No previous ECG available for comparison Electronically Signed On 11-27-2023 12:53:36 CDT by Rishi Koo M.D. [email or web address]
[2023-11-26 19:48] LABS: Basophils # 0.1 10^3/uL (0.0-0.1); Basophils % 0.8 %; Eosinophils # 0.5 10^3/uL (0.0-0.8); Eosinophils % 6.3 %; Hematocrit 46.1 % (36-47); Lymphocytes # 2.3 10^3/uL (0.8-4.8); Lymphocytes % 29.3 %; Mean Corpuscular HGB Conc 33.4 g/dL (30-55); Mean Corpuscular Hemoglobin 29.6 pg (27-33); Mean Corpuscular Volume 88.5 fl (85-98); Mean Platelet Volume 9.6 fL (7.4-10.4); Monocytes # 0.5 10^3/uL (0.2-0.9); Neutrophils # 4.56 10^3/uL (1.8-7.7); Neutrophils % 57.3 %; Nucleated Red Blood Cells % 0 %; Platelet Count 207 10^3/cmm (157-399); Red Blood Count 5.21 10^6/uL (3.85-5.65); Red Cell Distribution Width 13.2 % (12.1-15.1); White Blood Count 7.95 10^3/uL (3.29-11.43)
[2023-11-26] MEDS: ondansetron 2 mg/ML SDV 2 mL 4 MG IVP (19:51)
[2023-11-26] MEDS: morphine 4 mg/mL SDV 1 mL IVP ×2 (19:51→21:14)
[2023-11-26] MEDS: ketorolac 30 mg/mL INJ IVP (19:51)
[2023-11-26 20:10] LABS: HCG, Serum Qual Negative (Negative)
[2023-11-26 20:14] LABS: Troponin(5th) Baseline < 6 ng/L (0-10)
[2023-11-26 20:22] LABS: Alanine Aminotransferase 26 U/L (0-33); Albumin Level 3.9 g/dL (3.5-5.2); Alkaline Phosphatase 58 U/L (35-105); Anion Gap 12.2 (5-19); Aspartate Amino Transferase 19 U/L (0-32); Blood Urea Nitrogen 11 mg/dL (6-20); Calcium 8.2 mg/dL (8.5-10.5); Carbon Dioxide 24 mmol/L (22-29); Chloride 110 mmol/L (98-107); Creatinine Clr Calc Pharmacy 227.8623; Globulin 2.7 g/dL (1.3-4.6); Glomerular Filtration Rate 102.8 mL/min (90-130); Glucose 93 mg/dL (65-115); NT Pro B Type Natriuretic Pept 285 pg/mL (0-125); Osmolality Calculated 293 mOsm/kg (285-295); Potassium 4.2 mmol/L (3.5-5.1); Sodium 142 mmol/L (136-145); Total Bilirubin 0.3 mg/dL (0.15-1.2); Total Protein 6.6 g/dL (6.6-8.7)
[2023-11-26 20:33] VITALS: BP 121/82; PULSE 63; RESP 16; O2SAT 93
[2023-11-26] MEDS: lidocaine 2% viscous 15 ML, aluminum-mag hydrox-simethicon 30 ML, sucralfate oral liq 1 GM PO (21:15)
[2023-11-26] MEDS: dexamethasone 4 mg/mL INJ IVP (21:15)
[2023-11-26 21:25] VITALS: BP 121/82; PULSE 63; RESP 16; TEMP 36.6; O2SAT 93
--- NOTE | 2023-11-27 03:56 | ED_ITS ---
HPI - Chest Pain 2 General: Chief Complaint: Chest Pain Stated Complaint: chest pain Time Seen by Provider: 11/26/23 19:12 History of Present Illness: 23-year-old female complains of chest di [place]. Sudden onset today. She has had this pain on and off for months. Was worse today. She is short of breath. She is nauseated. She did not pass out. Associated symptoms: Reports dyspnea and nausea; Deny abdominal pain, fever(s), palpitations or vomiting Review of Systems 2 Const: Denies: fever(s), chills or body aches Eyes: Denies: change in vision Card: Reports: chest pain; Denies: palpitations Resp: Reports: dyspnea; Denies: productive cough, non-productive cough or wheezing GI: Reports: nausea; Denies: abdominal pain, vomiting, diarrhea or hematochezia : Denies: difficulty voiding Skin/Breast: Denies: rash Neuro: Denies: headache(s), weakness in extremities, dizziness or confusion PFSH ED 2 PFSH: Medical History [place] Social History Substance/Drug Use: never Physical Exam 2 Const: GENERAL APPEARANCE: cooperative and anxious; not ill appearing and not frail appearing HENMT: COMMON NORMALS: normocephalic, atraumatic and Normal external nose present HEAD & SCALP: normocephalic and atraumatic FACE & SINUS: normal facial exam and face symmetric NOSE: Normal external nose present Eye: COMMON NORMALS: Equal, round and reactive pupils present and EOMs intact bilaterally PUPIL: Yes Equal, round and reactive pupils present Neck/C-Spine: GENERAL: Yes trachea midline Chest: CHEST: Yes Symmetrical chest wall rise and Yes tenderness Resp: COMMON NORMALS: normal respiratory effort, No retractions, No use of accessory muscles and clear to auscultation bilaterally AUSCULTATION: clear to auscultation bilaterally Cardio: COMMON NORMALS: regular rate and regular rhythm RATE: regular rate RHYTHM: regular rhythm GI: COMMON NORMALS: Normal to inspection, nondistended, normoactive bowel sounds present PALPATION: Yes Tenderness to palpation present (GI) (Epigastric) Extremity: COMMON NORMALS: no pedal edema Neuro: [place] COMA SCALE: document GCS findings [place] coma scale eye opening: Spontaneous [place] coma scale verbal response: Orientated [place] coma scale motor response: Obey commands [place] coma scale total score: 15 S ENSORY EXAM: Yes extremities (intact) Psych: COMMON NORMALS: speech normal SPEECH: Yes normal speech Skin: COMMON NORMALS: no rashes or lesions noted GENERAL SKIN EXAM: no rashes or lesions noted Course 2 Vital Signs: Vital signs: Vital Signs Temperature 97.9 F 11/26/23 21:25 Pulse Rate 63 11/26/23 21:25 Respiratory Rate 16 11/26/23 21:25 Blood Pressure 121/82 11/26/23 21:25 Pulse Oximetry 93 11/26/23 21:25 Oxygen Delivery Me thod Room Air 11/26/23 20:33 MDM - Chest Pain Medical Decision Making Vitals are stable. CBC is normal. BMP is normal. Chest x-ray is normal. Troponin is nondetectable. She is nontachycardic and nonhypoxic. No evidence of pulmonary embolus. Pain resolved after Toradol and morphine here, but then returned. When the pain returned, it was more epigastric and reproducible in that area. She was given a GI cocktail which helped as well. She will be treated for gastritis. Lab Data 11/26/23 19:37 11/26/23 19:37 Radiology Impressions Chest X-Ray 11/26/23 19:21 IMPRESSION: No acute findings. Laboratory Results WBC 7.95 10^3/uL (3.29-11.43) 11/26/23 19:37 RBC 5.21 10^6/uL (3.85-5.65) 11/26/23 19:37 Hgb 15.40 g/dL (11.27-16.99) 11/26/23 19:37 Hct 46.1 % (36-47) 11/26/23 19:37 MCV 88.5 fl (85-98) 11/26/23 19:37 MCH 29.6 pg (27-33) 11/26/23 19:37 MCHC 33.4 g/dL (30-55) 11/26/23 19:37 RDW 13.2 % (12.1-15.1) 11/26/23 19:37 Plt Count 207 10^3/cmm (157-399) 11/26/23 19:37 MPV 9.6 fL (7.4-10.4) 11/26/23 19:37 Neut % (Auto) 57.3 % 11/26/23 19:37 Lymph % (Auto) 29.3 % 11/26/23 19:37 [place] % (Auto) 6.0 % 11/26/23 19:37 Eos % (Auto) 6.3 % 11/26/23 19:37 Baso % (Auto) 0.8 % 11/26/23 19:37 Neut # (Auto) 4.56 10^3/uL (1.8-7.7) 11/26/23 19:37 Lymph # (Auto) 2.3 10^3/uL (0.8-4.8) 11/26/23 19:37 [place] # (Auto) 0.5 10^3/uL (0.2-0.9) 11/26/23 19:37 Eos # (Auto) 0.5 10^3/uL (0.0-0.8) 11/26/23 19:37 Baso # (Auto) 0.1 10^3/uL (0.0-0.1) 11/26/23 19:37 Nucleated RBC % (auto) 0 % 11/26/23 19:37 Nucleated RBCs # 0.0 /100WBC 11/26/23 19:37 Sodium 142 mmol/L (136-145) 11/26/23 19:37 Potassium 4.2 mmol/L (3.5-5.1) 11/26/23 19:37 Chloride 110 mmol/L (98-107) H 11/26/23 19:37 Carbon Dioxide 24 mmol/L (22-29) 11/26/23 19:37 Anion Gap 12.2 (5-19) 11/26/23 19:37 BUN 11 mg/dL (6-20) 11/26/23 19:37 Creatinine 0.7 mg/dL (0.5-0.9) 11/26/23 19:37 GFR Calculation 102.8 mL/min (90-130) 11/26/23 19:37 Glucose 93 mg/dL (65-115) 11/26/23 19:37 Calculated Osmolality 293 mOsm/kg (285-295) 11/26/23 19:37 Calcium 8.2 mg/dL (8.5-10.5) L 11/26/23 19:37 Total Bilirubin 0.3 mg/dL (0.15-1.2) 11/26/23 19:37 AST 19 U/L (0-32) 11/26/23 19:37 ALT 26 U/L (0-33) 11/26/23 19:37 Alkaline Phosphatase 58 U/L (35-105) 11/26/23 19:37 Troponin T Baseline < 6 ng/L (0-10) 11/26/23 19:37 NT-Pro-B Natriuret Pep 285 pg/mL (0-125) H 11/26/23 19:37 Total Protein 6.6 g/dL (6.6-8.7) 11/26/23 19:37 Albumin 3.9 g/dL (3.5-5.2) 11/26/23 19:37 Globulin 2.7 g/dL (1.3-4.6) 11/26/23 19:37 HCG, Qual Negative (Negative) 11/26/23 19:37 All radiology interpretation(s) finalized by discharge Discharge Plan Discharge Patient Disposition: Home Clinical Impression: Atypical chest pain Condition: Stable Prescriptions: New sucralfate 1 gram tablet 1 g PO TID 28 Days Qty: 84 0RF Prevacid 30 mg capsule,delayed release(DR/EC) 30 mg PO DAILY Qty: 30 0RF No Action naproxen [Naprosyn] 500 mg tablet 500 mg PO BID PRN (Reason: pain) Qty: 10 2RF Rx Instructions: prn pain lactulose 10 gram/15 mL solution 20 g PO BID PRN (Reason: constipation) Qty: 237 0RF Discharge Orders: Discharge ED (Routine); Ordered 11/26/23 Ordered By: Maxi Lowery Patient Instructions: Chest Pain (ED), Opioid Safety, Pain Management Activity Restrictions/Additional Instructions: Medication as directed. Return for worsening shortness of breath, any other concerning symptoms. See your doctor this week. Coding Level of Care Code ED Forest Aide for Nolan Rahman
== END 2023-11-26 21:31 | disposition home or self-care (01) ==
PROVIDERS: Emergency Provider Emergency Medicine
DX: R07.89 Other chest pain (principal)
CPT/HCPCS: 36415; 71045; 80053; 83880; 84484; 84703; 85025; 93005; 96374; 96375; 96376; 99285; J1100; J1885; J2270; J2405

== ENCOUNTER 2023-12-15 13:08 | Emergency (ER) | payer MEDICAID, SELFPAY ==
[2023-12-15 13:14] VITALS: BP 141/92; PULSE 91; RESP 16; TEMP 37.2; O2SAT 97
--- NOTE | 2023-12-15 13:30 | ED_ITS ---
HPI - Abdominal Pain 2 General: Chief Complaint: Abdominal Pain Stated Complaint: abd pain Time Seen by Provider: 12/15/23 13:12 Source: patient Mode of arrival: EMS History of Present Illness: 23-year-old female who presents to the e mergency room with abdominal pain for the last 3 days. No hematochezia melena hematemesis or coffee-ground's has previously had cholecystectomy. She is complaining of pain she localizes right upper quadrant. Very nauseated this morning but no vomiting. She was given Zofran. She has had significant diarrhea. She denies any dysuria urgency or frequency she has thought there is been a little bit of pinkish tinge to her urine but no avery red blood. No history of any nephrolithiasis. No other surgeries besides the cholecystectomy. MD elicited complaint: abdominal pain Onset (ago): day(s) (3) Pain Consistency: constant Location: RUQ Severity: mild Quality: cramping Radiation: none Exacerbating factors: nothing Relieving factors: nothing Associated Symptoms: Denies anorexia, belching, bloating, change in bowel habits, change in stool character, chills, coffee ground emesis, constipation, GI cramping, diarrhea, dyspepsia, dysuria, excessive flatus, fever(s), heartburn, hematochezia, hematuria, hematemesis, fecal incontinence, loose stools, melena, nausea, poor appetite, syncope and vomiting Review of Systems 2 Const: Denies: fever(s) or chills Card: Denies: chest pain or syncope Resp: Denies: dyspnea GI: Denies: abdominal pain, nausea, vomiting, hematemesis, coffee ground emesis, heartburn, diarrhea, constipation, bloating, GI cramping, belching, excessive flatus, fecal incontinence, change in bowel habits, change in stool character, hematochezia or melena : Denies: dysuria, urinary frequency, urinary urgency or hematuria Musc: Denies: neck pain or back pain Skin/Breast: Denies: rash PFSH ED 2 PFSH: Medical History (Updated 12/15/23 @ 15:43 by Aj Molnia DO) [place] Surgical History (Updated 12/15/23 @ 13:38 by Aj Molina DO) S/P cholecystectomy Social History (Reviewed 06/07/24 @ 13:37 by GARRY Gupta Substance/Drug Use: never Physical Exam 2 Const: GENERAL APPEARANCE: cooperative and comfortable O RIENTATION/CONSCIOUSNESS: Yes awake, Yes oriented to place and Yes oriented to time; not oriented to person HENMT: COMMON NORMALS: normocephalic, atraumatic and hearing grossly normal bilaterally HEAD & SCALP: normocephalic and atraumatic Resp: COMMON NORMALS: normal respiratory effort, No retractions, No use of accessory muscles and clear to auscultation bilaterally AUSCULTATION: clear to auscultation bilaterally Cardio: COMMON NORMALS: regular rate, regular rhythm and No murmurs present (Cardio) RATE: regular rate RHYTHM: regular rhythm GI: COMMON NORMALS: No hepatosplenomegaly present AUSCULTATION: Yes normoactive bowel sounds PALPATION: Yes Tenderness to palpation present (GI) Details: RUQ, No Guarding due to palpation present (GI) and Yes No hepatosplenomegaly present Extremity: COMMON NORMALS: normal to inspection, capillary refill normal, no clubbing, cyanosis or edema, no calf tenderness and no pedal edema Neuro: SENSORIUM/ORIENTATION: No oriented to person, Yes oriented to place and Yes oriented to time Skin: COMMON NORMALS: no rashes or lesions noted GENERAL SKIN EXAM: no rashes or lesions noted Course 2 Vital Signs: Vital signs: Vital Signs Temperature 99.0 F 12/15/23 13:14 Pulse Rate 62 12/15/23 15:54 Respiratory Rate 15 12/15/23 14:07 Blood Pressure 121/75 12/15/23 15:00 Pulse Oximetry 98 12/15/23 15:54 Oxygen Delivery Me thod Room Air 12/15/23 14:07 MDM - Abdominal Pain Medical Decision Making No acute findings on CT. No leukocytosis urine is normal. Will switch her to Protonix have her do 40 mg twice a day for 10 days and then decrease to once daily. Clear liquid diet 24 to 40 hours advance as tolerated Medical Records I reviewed the patient's medical records. Lab Data I reviewed the patient's lab results. 12/15/23 13:28 12/15/23 13:28 Labs/Radiology: Radiology Impressions Abdomen/Pelvis CT 12/15/23 13:32 IMPRESSION: 1. Limited noncontrast examination without CT evidence of acute intra-abdominal or pelvic pathology. 2. Additional findings, as above. Laboratory Results WBC 8.97 10^3/uL (3.29-11.43) 12/15/23 13:28 RBC 5.10 10^6/uL (3.85-5.65) 12/15/23 13:28 Hgb 15.10 g/dL (11.27-16.99) 12/15/23 13:28 Hct 44.7 % (36-47) 12/15/23 13:28 MCV 87.6 fl (85-98) 12/15/23 13:28 MCH 29.6 pg (27-33) 12/15/23 13:28 MCHC 33.8 g/dL (30-55) 12/15/23 13:28 RDW 13.0 % (12.1-15.1) 12/15/23 13:28 Plt Count 226 10^3/cmm (157-399) 12/15/23 13:28 MPV 9.1 fL (7.4-10.4) 12/15/23 13:28 Neut % (Auto) 69.2 % 12/15/23 13:28 Lymph % (Auto) 18.6 % 12/15/23 13:28 [place] % (Auto) 6.9 % 12/15/23 13:28 Eos % (Auto) 4.5 % 12/15/23 13:28 Baso % (Auto) 0.6 % 12/15/23 13:28 Neut # (Auto) 6.21 10^3/uL (1.8-7.7) 12/15/23 13:28 Lymph # (Auto) 1.7 10^3/uL (0.8-4.8) 12/15/23 13:28 [place] # (Auto) 0.6 10^3/uL (0.2-0.9) 12/15/23 13:28 Eos # (Auto) 0.4 10^3/uL (0.0-0.8) 12/15/23 13:28 Baso # (Auto) 0.1 10^3/uL (0.0-0.1) 12/15/23 13:28 Nucleated RBC % (auto) 0 % 12/15/23 13:28 Nucleated RBCs # 0.0 /100WBC 12/15/23 13:28 Sodium 138 mmol/L (136-145) 12/15/23 13:28 Potassium 3.6 mmol/L (3.5-5.1) 12/15/23 13:28 Chloride 105 mmol/L (98-107) 12/15/23 13:28 Carbon Dioxide 23 mmol/L (22-29) 12/15/23 13:28 Anion Gap 13.6 (5-19) 12/15/23 13:28 BUN 11 mg/dL (6-20) 12/15/23 13:28 Creatinine 0.8 mg/dL (0.5-0.9) 12/15/23 13:28 GFR Calculation 88.1 mL/min (90-130) L 12/15/23 13:28 Glucose 90 mg/dL (65-115) 12/15/23 13:28 Calculated Osmolality 285 mOsm/kg (285-295) 12/15/23 13:28 Calcium 8.6 mg/dL (8.5-10.5) 12/15/23 13:28 Total Bilirubin 0.6 mg/dL (0.15-1.2) 12/15/23 13:28 AST 15 U/L (0-32) 12/15/23 13:28 ALT 24 U/L (0-33) 12/15/23 13:28 Alkaline Phosphatase 60 U/L (35-105) 12/15/23 13:28 Total Protein 6.6 g/dL (6.6-8.7) 12/15/23 13:28 Albumin 3.9 g/dL (3.5-5.2) 12/15/23 13:28 Globulin 2.7 g/dL (1.3-4.6) 12/15/23 13:28 Lipase 15 U/L (13-60) 12/15/23 13:28 HCG, Qual Negative (Negative) 12/15/23 13:28 Urine Color Yellow (Yellow) 12/15/23 14:00 Urine Appearance Cloudy (CLEAR) A 12/15/23 14:00 Urine pH 5 (5-7) 12/15/23 14:00 Ur Specific [place] 1.025 (1.005-1.030) 12/15/23 14:00 Urine Protein 1+ (Negative) H 12/15/23 14:00 Urine Glucose (UA) Norm (Normal) 12/15/23 14:00 Urine Ketones Negative (Negative) 12/15/23 14:00 Urine Blood Neg (Negative) 12/15/23 14:00 Urine Nitrate Negative (Negative) 12/15/23 14:00 Urine Bilirubin 1+ (Negative) H 12/15/23 14:00 Urine Urobilinogen 1 mg/dL (Negative) H 12/15/23 14:00 Ur Leukocyte Esterase 1+ (Negative) H 12/15/23 14:00 Urine RBC 0-4 /hpf (0-2) H 12/15/23 14:00 Urine WBC 0-4 /hpf (0-5) H 12/15/23 14:00 Ur Squamous Epith Cells 5-10 /hpf (0-5) H 12/15/23 14:00 Amorphous Sediment Not Reportable 12/15/23 14:00 Urine Bacteria 1+ /hpf (NONE) H 12/15/23 14:00 Urine Mucus 1+ /hpf 12/15/23 14:00 All radiology interpretation(s) finalized by discharge Discharge Plan Discharge Patient Disposition: Home Clinical Impression: Abdominal pain Condition: Stable Prescriptions: New pantoprazole 40 mg tablet,delayed release (DR/EC) 40 mg PO DAILY Qty: 40 0RF Rx Instructions: 1 p.o. twice daily x 10 days then 1 p.o. daily Discontinued lansoprazole [Prevacid] 30 mg capsule,delayed release(DR/EC) 30 mg PO DAILY PRN (Reason: Acid Reflux) No Action sucralfate 1 gram tablet 1 g PO TID 28 Days Qty: 84 0RF Discharge Orders: Discharge ED (Routine); Ordered 12/15/23 Ordered By: Aj Molina Discharge Diet: Usual diet Discharge Activity: Increase activity as tolerated Patient Instructions: Abdominal Pain (ED), Opioid Safety, Pain Management Activity Restrictions/Additional Instructions: Thank you for choosing [facility] for your healthcare needs today. It is very important that you follow up as instructed or that you return to the Emergency Department should you have concerns or if your condition changes or worsens in any way. You are seen today with complaints of abdominal pain. Your white count was normal urine did not show any signs of infection liver and kidney functions were also normal. CT of the abdomen did not show any acute abnormalities. Recommend changing from Prevacid to pantoprazole 1 pill twice a day for 10 days then 1 pill daily. Recommend you establish with a primary care physician. Coding Level of Care Code ED Special Class Welder for Nolan Rahman
--- NOTE | 2023-12-15 13:32 | CTR_ITS ---
PROCEDURE INFORMATION: Exam: CT Abdomen And Pelvis Without Contrast Exam date and time: 12/15/2023 2:47 PM Age: 23 years old Clinical indication: Abdominal pain; Epigastric; Prior surgery; Surgery date: 6+ months; Surgery type: Gb TECHNIQUE: Imaging protocol: Computed tomography of the abdomen and pelvis without contrast. Axial, coronal and sagittal reformatted images were created and reviewed. Radiation optimization: All CT scans at this facility use at least one of these dose optimization techniques: automated exposure control; mA and/or kV adjustment per patient size (includes targeted exams where dose is matched to clinical indication); or iterative reconstruction. COMPARISON: CR XR KUB [id number] 04/25/2023 8:13 PM RADIATION DOSE METRICS: Total DLP (mGy-cm): 1979.33 FINDINGS: Lungs: Linear stranding and groundglass at the lung bases, likely due to atelectasis and/or scarring. Right lower lobe calcified granulomata. Liver: Unremarkable. Gallbladder and bile ducts: Status post cholecystectomy. No biliary ductal dilatation. Pancreas: Unremarkable. Spleen: Mild splenomegaly. Adrenal glands: Normal. No mass. Kidneys and ureters: No mass. No radiodense calculi. No hydronephrosis. Stomach and bowel: No bowel wall thickening. No obstruction. No pneumatosis. Appendix: Normal. Intraperitoneal space: No free fluid. No organized fluid collection. No free air. Vasculature: Unremarkable. No aneurysm. Lymph nodes: Small mesenteric lymph nodes, nonspecific in appearance. No pathologically enlarged lymph nodes. Urinary bladder: Unremarkable as visualized. Reproductive: Unremarkable. Bones/joints: No acute osseous abnormality. Mild degenerative changes. Soft tissues: Tiny, fat containing umbilical and supraumbilical hernias. CT/CT abdomen pelvis [facility] [id number] IMPRESSION: 1. Limited noncontrast examination without CT evidence of acute intra-abdominal or pelvic pathology. 2. Additional findings, as above.
[2023-12-15 13:42] LABS: Basophils # 0.1 10^3/uL (0.0-0.1); Basophils % 0.6 %; Eosinophils # 0.4 10^3/uL (0.0-0.8); Eosinophils % 4.5 %; Hematocrit 44.7 % (36-47); Lymphocytes # 1.7 10^3/uL (0.8-4.8); Lymphocytes % 18.6 %; Mean Corpuscular HGB Conc 33.8 g/dL (30-55); Mean Corpuscular Hemoglobin 29.6 pg (27-33); Mean Corpuscular Volume 87.6 fl (85-98); Mean Platelet Volume 9.1 fL (7.4-10.4); Monocytes # 0.6 10^3/uL (0.2-0.9); Monocytes % 6.9 %; Neutrophils # 6.21 10^3/uL (1.8-7.7); Neutrophils % 69.2 %; Nucleated Red Blood Cells % 0 %; Platelet Count 226 10^3/cmm (157-399); White Blood Count 8.97 10^3/uL (3.29-11.43)
[2023-12-15] MEDS: sodium chloride 0.9% 1,000 ML 999 ML IV (13:58)
[2023-12-15 14:02] LABS: Alanine Aminotransferase 24 U/L (0-33); Albumin Level 3.9 g/dL (3.5-5.2); Alkaline Phosphatase 60 U/L (35-105); Anion Gap 13.6 (5-19); Aspartate Amino Transferase 15 U/L (0-32); Blood Urea Nitrogen 11 mg/dL (6-20); Calcium 8.6 mg/dL (8.5-10.5); Carbon Dioxide 23 mmol/L (22-29); Chloride 105 mmol/L (98-107); Creatinine Clr Calc Pharmacy 194.7206; Globulin 2.7 g/dL (1.3-4.6); Glomerular Filtration Rate 88.1 mL/min (90-130); Glucose 90 mg/dL (65-115); Lipase 15 U/L (13-60); Osmolality Calculated 285 mOsm/kg (285-295); Potassium 3.6 mmol/L (3.5-5.1); Sodium 138 mmol/L (136-145); Total Bilirubin 0.6 mg/dL (0.15-1.2); Total Protein 6.6 g/dL (6.6-8.7)
[2023-12-15 14:07] VITALS: BP 123/62; PULSE 64; RESP 15; O2SAT 98
[2023-12-15 14:32] LABS: Blood Urine Neg (Negative); Glucose Urine UA Norm (Normal); Ketones Urine Negative (Negative); Protein Urine 1+ (Negative); Specific Gravity, Urine 1.025 (1.005-1.030); Urine Appearance Cloudy (CLEAR); Urine Color Yellow (Yellow); pH Urine 5 (5-7)
[2023-12-15 14:33] LABS: Add Urine Microscopic? YES; Bacteria Urine 1+ /hpf; Bilirubin Urine 1+ (Negative); Leukocyte Esterase Urine 1+ (Negative); Mucus Urine 1+ /hpf; Nitrate Urine Negative (Negative); RBC Urine 0-4 /hpf (0-2); Urobilinogen Urine 1 mg/dL (Negative); WBC Urine 0-4 /hpf (0-5)
[2023-12-15 14:36] LABS: HCG, Serum Qual Negative (Negative)
[2023-12-15 15:00] VITALS: BP 121/75
[2023-12-15] MEDS: acetaminophen 325 mg Tablet 650 MG PO (15:52)
[2023-12-15 15:54] VITALS: PULSE 62; O2SAT 98
== END 2023-12-15 15:56 | disposition home or self-care (01) ==
PROVIDERS: Emergency Provider Family Medicine
DX: R10.11 Right upper quadrant pain (principal)
CPT/HCPCS: 36415; 74176; 80053; 81001; 83690; 84703; 85025; 96360; 96361; 99285; J7030

== ENCOUNTER 2024-02-20 18:30 | Emergency (ER) | payer MEDICAID, SELFPAY ==
[2024-02-20 18:52] VITALS: BP 137/70; PULSE 86; RESP 17; TEMP 36.8; O2SAT 98; BMI 49.4
[2024-02-20 19:07] VITALS: BP 128/93; PULSE 72; RESP 18; O2SAT 98
[2024-02-20 19:08] LABS: Charge for UA Resulting for Rev
[2024-02-20 19:14] LABS: Basophils # 0.1 10^3/uL (0.0-0.1); Basophils % 0.9 %; Eosinophils # 0.6 10^3/uL (0.0-0.8); Eosinophils % 6.9 %; Hematocrit 47.1 % (36-47); Lymphocytes # 2.1 10^3/uL (0.8-4.8); Lymphocytes % 26.6 %; Mean Corpuscular HGB Conc 32.5 g/dL (30-55); Mean Corpuscular Hemoglobin 29.6 pg (27-33); Mean Corpuscular Volume 91.1 fl (85-98); Mean Platelet Volume 9.5 fL (7.4-10.4); Monocytes # 0.6 10^3/uL (0.2-0.9); Monocytes % 7.1 %; Neutrophils # 4.65 10^3/uL (1.8-7.7); Neutrophils % 58.2 %; Nucleated Red Blood Cells % 0 %; Platelet Count 212 10^3/cmm (157-399); Red Blood Count 5.17 10^6/uL (3.85-5.65); Red Cell Distribution Width 13.5 % (12.1-15.1); White Blood Count 7.98 10^3/uL (3.29-11.43)
[2024-02-20 19:16] LABS: Bilirubin Urine Negative (Negative); Blood Urine Negative (Negative); Glucose Urine UA Negative (Normal); Ketones Urine Negative (Negative); Leukocyte Esterase Urine Negative (Negative); Nitrate Urine Negative (Negative); Protein Urine Negative (Negative); Specific Gravity, Urine 1.011 (1.005-1.030); Urine Appearance Clear (CLEAR); Urine Color Yellow (Yellow); pH Urine 6.5 (5-7)
[2024-02-20 19:21] LABS: Bacteria Urine None Seen /hpf; Hyaline Casts Urine 0-4 /lpf; RBC Urine 0-2 /hpf (0-2); Squamous Epithelial Cell Urine 0-5 /hpf (0-5); WBC Urine 0-5 /hpf (0-5)
--- NOTE | 2024-02-20 19:22 | ED_ITS ---
HPI - Extremity Problem 2 General: Chief complaint: Extremity Problem,Nontraumatic Stated complaint: legs swollen days Time Seen by Provider: 02/20/24 18:58 Source: patient Mode of arrival: ambulatory Limitations: no limitations History of Present Illness: Patient is a 23-year-old female present to the emergency department complaining of bilateral lower extremity swelling for the past few weeks. She has a history of this in the past, however states normally goes away on its own. She states she is starting have pain as she feels like her skin is stretching. She denies any chest pain, breathing difficulties, orthopnea, or other pertinent past medical history. Her vitals are normal on arrival, breathing comfortably on room air. No recent medication changes. She does not have a primary doctor. MD Complaint: extremity swelling Onset (ago): week(s) Pain Consistency: constant Location: left, right and lower extremity Associated symptoms: Deny chest pain, fever(s) or rash Related Data Allergies Allergy/AdvReac Type Severity Reaction Status Date / Time No Known Allergies Allergy Verified 08/14/23 16:58 Review of Systems 2 General: Reports: 10 or more systems reviewed and unremarkable except in HPI and below Const: Denies: fever(s), chills or fatigue Eyes: Denies: change in vision ENMT: Denies: throat pain, ear or mastoid pain or nasal discharge Card: Denies: chest pain, palpitations, swelling of feet/ankles or lightheadedness Resp: Denies: dyspnea, productive cough or wheezing GI: Denies: abdominal pain, nausea, vomiting, diarrhea or constipation : Denies: flank pain, difficulty voiding, dysuria or urinary frequency Musc: Reports: extremity pain (Bilateral lower extremities) and extremity swelling (Bilateral lower extremities); Denies: neck pain, back pain or joint pain Skin/Breast: Denies: rash Neuro: Denies: headache(s), numbness in extremities or weakness in extremities PFSH ED 2 PFSH: Medical History Gallstone Surgical History S/P cholecystectomy Social History Substance/Drug Use: never Female Reproductive History: Date of last menstrual period: 01/07/24 Physical Exam 2 Const: COMMON NORMALS: no acute distress, patient oriented x3 and no limitations GENERAL APPEARANCE: cooperative, comfortable and well developed NUTRITIONAL APPEARANCE: obese morbidly obese ORIENTATION/CONSCIOUSNESS: Yes awake, Yes oriented to person, Yes oriented to place and Yes oriented to time Neck/C-Spine: COMMON NORMALS: full ROM, supple and no JVD Resp: COMMON NORMALS: normal respiratory effort, No retractions, No use of accessory muscles and clear to auscultation bilaterally AUSCULTATION: clear to auscultation bilaterally Cardio: COMMON NORMALS: no JVD, regular rate, regular rhythm, No clicks present (Cardio), No murmurs present (Cardio) and No rub (Cardio) RATE: r egular rate RHYTHM: regular rhythm Extremity: COMMON NORMALS: full ROM and capillary refill normal NARRATIVE EXTREMITY EXAM: Edema to bilateral lower extremities, nonpitting. No overlying skin changes. This swelling does appear chronic in nature. Neuro: COMMON NORMALS: patient oriented x3, moves all extremities, no focal motor deficits and no sensory deficits noted SENSORIUM/ORIENTATION: Yes oriented to person, Yes oriented to place and Yes oriented to time Psych: COMMON NORMALS: mental status grossly normal and Normal thought process present THOUGHT PROCESS: Normal thought process present Skin: COMMON NORMALS: no rashes or lesions noted GENERAL SKIN EXAM: no rashes or lesions noted Course 2 Vital Signs: Vital signs: Vital Signs Temperature 98.2 F 02/20/24 20:19 Pulse Rate 72 02/20/24 20:19 Respiratory Rate 18 02/20/24 20:19 Blood Pressure 128/93 02/20/24 20:19 Pulse Oximetry 98 02/20/24 20:19 Oxygen Delivery Me thod Room Air 02/20/24 18:52 MDM - Extremity (Nontraumatic) Medical Decision Making Patient presented with chronic bilateral lower extremity edema, states his current episode has been for the past 3 weeks and is not improving. She states in the past that has been from fluid and she is given water pills, which makes it go away. Vitals were stable on arrival, physical exam showed the patient to be morbidly obese with chronic appearing swelling to the bilateral lower extremities, however it was not pitting and does not appear to be fluid burden at this time. I believe that her swelling is likely secondary to her body habitus, however cannot completely rule out fluid or lymphedema and I did inform her to establish with primary care and have this worked up on an outpatient basis. In addition, her labs were all completely negative, along with a urinalysis that did not reveal any protein. She will be discharged home at this time with return precautions given. Lab Data 02/20/24 19:04 02/20/24 19:04 Laboratory Results WBC 7.98 10^3/uL (3.29-11.43) 02/20/24 19:04 RBC 5.17 10^6/uL (3.85-5.65) 02/20/24 19:04 Hgb 15.30 g/dL (11.27-16.99) 02/20/24 19:04 Hct 47.1 % (36-47) H 02/20/24 19:04 MCV 91.1 fl (85-98) 02/20/24 19:04 MCH 29.6 pg (27-33) 02/20/24 19:04 MCHC 32.5 g/dL (30-55) 02/20/24 19:04 RDW 13.5 % (12.1-15.1) 02/20/24 19:04 Plt Count 212 10^3/cmm (157-399) 02/20/24 19:04 MPV 9.5 fL (7.4-10.4) 02/20/24 19:04 Neut % (Auto) 58.2 % 02/20/24 19:04 Lymph % (Auto) 26.6 % 02/20/24 19:04 Hendry % (Auto) 7.1 % 02/20/24 19:04 Eos % (Auto) 6.9 % 02/20/24 19:04 Baso % (Auto) 0.9 % 02/20/24 19:04 Neut # (Auto) 4.65 10^3/uL (1.8-7.7) 02/20/24 19:04 Lymph # (Auto) 2.1 10^3/uL (0.8-4.8) 02/20/24 19:04 Hendry # (Auto) 0.6 10^3/uL (0.2-0.9) 02/20/24 19:04 Eos # (Auto) 0.6 10^3/uL (0.0-0.8) 02/20/24 19:04 Baso # (Auto) 0.1 10^3/uL (0.0-0.1) 02/20/24 19:04 Nucleated RBC % (auto) 0 % 02/20/24 19:04 Nucleated RBCs # 0.0 /100WBC 02/20/24 19:04 Sodium 141 mmol/L (136-145) 02/20/24 19:04 Potassium 3.6 mmol/L (3.5-5.1) 02/20/24 19:04 Chloride 105 mmol/L (98-107) 02/20/24 19:04 Carbon Dioxide 24 mmol/L (22-29) 02/20/24 19:04 Anion Gap 15.6 (5-19) 02/20/24 19:04 BUN 13 mg/dL (6-20) 02/20/24 19:04 Creatinine 0.8 mg/dL (0.5-0.9) 02/20/24 19:04 GFR Calculation 88.1 mL/min (90-130) L 02/20/24 19:04 Glucose 92 mg/dL (65-115) 02/20/24 19:04 Calculated Osmolality 292 mOsm/kg (285-295) 02/20/24 19:04 Calcium 9.2 mg/dL (8.5-10.5) 02/20/24 19:04 Total Bilirubin 0.3 mg/dL (0.15-1.2) 02/20/24 19:04 AST 18 U/L (0-32) 02/20/24 19:04 ALT 31 U/L (0-33) 02/20/24 19:04 Alkaline Phosphatase 64 U/L (35-105) 02/20/24 19:04 Total Protein 7.0 g/dL (6.6-8.7) 02/20/24 19:04 Albumin 4.4 g/dL (3.5-5.2) 02/20/24 19:04 Globulin 2.6 g/dL (1.3-4.6) 02/20/24 19:04 Urine Color Yellow (Yellow) 02/20/24 19:00 Urine Appearance Clear (CLEAR) 02/20/24 19:00 Urine pH 6.5 (5-7) 02/20/24 19:00 Ur Specific [place] 1.011 (1.005-1.030) 02/20/24 19:00 Urine Protein Negative (Negative) 02/20/24 19:00 Urine Glucose (UA) Negative (Normal) 02/20/24 19:00 Urine Ketones Negative (Negative) 02/20/24 19:00 Urine Blood Negative (Negative) 02/20/24 19:00 Urine Nitrate Negative (Negative) 02/20/24 19:00 Urine Bilirubin Negative (Negative) 02/20/24 19:00 Urine Urobilinogen 1.0 mg/dL (Negative) 02/20/24 19:00 Ur Leukocyte Esterase Negative (Negative) 02/20/24 19:00 Urine RBC 0-2 /hpf (0-2) 02/20/24 19:00 Urine WBC 0-5 /hpf (0-5) 02/20/24 19:00 Ur Squamous Epith Cells 0-5 /hpf (0-5) 02/20/24 19:00 Amorphous Sediment Not Reportable 02/20/24 19:00 Urine Bacteria None seen /hpf (NONE) 02/20/24 19:00 Hyaline Casts 0-4 /lpf H 02/20/24 19:00 No radiology studies performed this visit Discharge Plan Discharge Patient Disposition: Home Clinical Impression: Edema of both lower legs Condition: Stable Discharge Orders: Discharge ED (Routine); Ordered 02/20/24 Ordered By: José Ca Discharge Diet: As Directed Discharge Activity: Increase activity as tolerated Patient Instructions: Leg Edema (ED) Activity Restrictions/Additional Instructions: Please follow-up with her primary doctor for evaluation of your chronic swelling as discussed. Restrict sodium intake. Compression stockings and increase your physical exercise. Return if you develop any concerning symptoms. Coding Level of Care Code ED [employer] Distribution Engineer for Nolan Rahman
[2024-02-20 19:36] LABS: Alanine Aminotransferase 31 U/L (0-33); Albumin Level 4.4 g/dL (3.5-5.2); Alkaline Phosphatase 64 U/L (35-105); Anion Gap 15.6 (5-19); Aspartate Amino Transferase 18 U/L (0-32); Blood Urea Nitrogen 13 mg/dL (6-20); Calcium 9.2 mg/dL (8.5-10.5); Carbon Dioxide 24 mmol/L (22-29); Chloride 105 mmol/L (98-107); Creatinine Clr Calc Pharmacy 199.3795; Globulin 2.6 g/dL (1.3-4.6); Glomerular Filtration Rate 88.1 mL/min (90-130); Glucose 92 mg/dL (65-115); Osmolality Calculated 292 mOsm/kg (285-295); Potassium 3.6 mmol/L (3.5-5.1); Sodium 141 mmol/L (136-145); Total Bilirubin 0.3 mg/dL (0.15-1.2)
[2024-02-20 20:19] VITALS: BP 128/93; PULSE 72; RESP 18; TEMP 36.8; O2SAT 98
== END 2024-02-20 20:01 | disposition home or self-care (01) ==
PROVIDERS: Emergency Provider Physician Assistant
DX: R60.0 Localized edema (principal)
CPT/HCPCS: 80053; 81003; 81015; 85025; 99283